=== PATIENT | female | born 1935 | race Caucasian/White ===

== ENCOUNTER 2016-10-12 14:25 | Emergency (ER) | payer OTHER ==
--- NOTE | ~2016-10-12 | CN ---
Consultation Report [facility] [address] [place]. [address] NAME: GOMEZ VARGAS : 35 STATUS : [facility]#: [id number] AGE: 81 ADM/REG DATE : 10/12/16 MR#: [id number] REPORT SERV DATE: 10/12/16 DICTATED BY: GALI BANSAL DATE: 10/12/16 REPORT STATUS : Draft TRANSCRIBED BY: MODL DATE: 10/12/16 CARDIOLOGY CONSULTATION NOTE DATE OF CONSULTATION: 10/12/2016 REASON FOR CONSULTATION: Out of hospital cardiac arrest with ongoing CPR. HISTORY OF PRESENT ILLNESS: Ms Vargas is an 81-year-old woman with a history of hereditary angioedema. The patient apparently had been complaining of shortness of breath for one to two days. The patient apparently was advised by her family to go to the emergency room, but refused yesterday. Today, the patient's symptoms had progressed and Emergency Medical Services were called. According to EMS, they arrived at the patient's home to find her with a cyanotic and mottled appearance. The patient was severely hypoxic. As the patient was being treated and prepared for transport, she apparently suffered PEA cardiac arrest. The patient was treated with CPR and had return of spontaneous circulation after several minutes of CPR, which was started at approximately 1:10 p.m. today. The patient apparently lost her pulse on several occasions in transit to [facility]. The patient was brought to the [facility] where a 12-lead EKG was performed. This showed a right bundle branch block pattern. There was concern over possible anterolateral ST-segment elevation. The Cardiology Service was therefore consulted. At the time of my arrival at the bedside, CPR was in progress. The patient was eventually resuscitated with IV bicarbonate and epinephrine. The patient's initial ABG shows a pH of 6.88, pCO2 of 74, and PO2 of 240. The patient had a stat serum lactate of greater than 20. After the patient had been temporarily stabilized, a bedside echocardiogram was performed. This was of a very limited quality, due to body habitus and poor windows as well as endotracheal intubation and positive pressure ventilation. However, the patient's left ventricle did not show any segmental wall motion abnormalities in the views that were obtained. Left ventricular systolic function did appear to be mildly to moderately reduced with an ejection fraction of approximately 40% to 45%. The patient's right ventricle, however, appeared to be dilated with diffuse hypokinesis of the right ventricle and relatively preserved function of the RV apex. This finding was suggestive of pulmonary embolism. Shortly after echocardiography was performed, the patient again became pulseless despite treatment with an IV epinephrine drip. CPR was restarted. At this time, the case was discussed with the patient's family. The patient has multiple poor prognostic factors for [id number] cardiac arrest, including a pH less than 7.2, lactic greater than 7, and prolonged CPR as well as her initial rhythm being a non VFib rhythm. It was recommended that the family that the patient not be treated with an emergency cardiac catheterization. The family explained that the patient would not want extreme measures taken to prolong her life. After discussion with the family, the patient again became pulseless. After additional CPR and epinephrine, the patient had an agonal rhythm with severe bradycardia and Consultation Report [address] [address] NAME: GOMEZ VARGAS : 35 STATUS : DEP ER PAT#: [id number] AGE: 81 ADM/REG DATE : 10/12/16 MR#: [id number] REPORT SERV DATE: 10/12/16 DICTATED BY: GALI BANSAL DATE: 10/12/16 REPORT STATUS : Draft TRANSCRIBED BY: MIRANDA DATE: 10/12/16 pulseless electrical activity. The patient was pronounced shortly after this and the family was informed. The patient was pronounced by Dr. Mendez. The time of was approximately 1430 hours on 10/12/2016. A total of approximately one hour of critical care time was spent with this patient including discussions with the ER attending and the patient's family. [facility]/MIRANDA Gali Bansal MD / [id number]
[2016-10-12 14:00] LABS: INSTRUMENT SERIAL # 8087; PCO2 (CO2 TENSION) 74 MMHG (35-45); pH 6.87 (7.37-7.43)
[2016-10-12 14:01] LABS: BE (BASE EXCESS) -19.8 MEQ/L (0 +/- 2.5); HCO3 (ACTUAL BICARBONATE) 13.1 MEQ/L (23-27); HEMOBLOGIN CONTENT 8.8 G/DL (12-16); METHEMOGLOBIN 0.5 % (0-3); O2 CONTENT 12.7 VOL% (18-24); PO2 (O2 TENSION) 240 MMHG (79-93); SAMPLE Arterial
[2016-10-12 14:07] LABS: BASOPHILS 0.6 %; BASOPHILS ABSOLUTE 0.07 10/3/uL (0.0-0.16); EOSINOPHILS 1.2 %; EOSINOPHILS ABSOLUTE 0.14 10/3/uL (0.0-0.53); ER CBC TAT 0 Hrs 05 Mins; HEMATOCRIT 28.5 % (36.0-48.0); HEMOGLOBIN 8.1 g/dL (12.0-16.0); IMMATURE GRANULOCYTES 4.1 %; IMMATURE GRANULOCYTES ABSOLUTE 0.48 10/3/uL (0.0-0.11); LYMPHOCYTES 48.8 %; LYMPHOCYTES ABSOLUTE 5.72 10/3/uL (0.67-4.30); MEAN CORPUS HGB CONC 28.4 g/dL (32.0-36.0); MEAN CORPUSCULAR HEMOGLOB 29.6 pg (26.0-34.0); MEAN PLATELET VOLUME 10.2 fL (9.2-13.0); MONOCYTES 9.6 %; MONOCYTES ABSOLUTE 1.12 10/3/uL (0.21-1.20); NEUTROPHILS 35.7 %; NEUTROPHILS ABSOLUTE 4.19 10/3/uL (2.02-8.40); PLATELET COUNT 203 10/3/uL (150-400); RBC DISTRIBUTION WIDTH 14.5 % (12.0-16.0); RED CELL COUNT 2.74 10/6/uL (4.0-5.6); WHITE BLOOD CELLS 11.7 10/3/uL (4.5-10.5)
[2016-10-12 14:08] LABS: MANUAL DIFF NO %
[2016-10-12 14:09] LABS: NUCLEATED RED BLOOD CELLS 0.7 /100WBC (0-0)
[2016-10-12 14:13] LABS: INTERNATIONAL NORMAL RATI 1.9 UNITS (-); PARTIAL THROMBO TIME 51.7 SEC (22.5-37.2); PROTIME (NOT ORD) 21.6 SEC (12.0-14.5)
[2016-10-12 14:19] LABS: BE (BASE EXCESS) -13.8 MEQ/L (0 +/- 2.5); CARBOXYHEMOGLOBIN 1.6 % (0-3); HCO3 (ACTUAL BICARBONATE) 17.1 MEQ/L (23-27); HEMOBLOGIN CONTENT 8.1 G/DL (12-16); INSTRUMENT SERIAL # 8087; METHEMOGLOBIN 0.4 % (0-3); O2 CONTENT 11.1 VOL% (18-24); PCO2 (CO2 TENSION) 73 MMHG (35-45); PO2 (O2 TENSION) 139 MMHG (79-93); SAMPLE Arterial; pH 6.99 (7.37-7.43)
[2016-10-12 14:21] LABS: BUN (BLOOD UREA NITROGEN) 15 MG/DL (6-23); CALCIUM, SERUM 12.1 MG/DL (8.5-10.4); CHLORIDE, SERUM 103 MMOL/L (96-112); CREATININE 1.98 MG/DL (0.55-1.02); GFR AFRICAN AMERICAN 27 ML/MIN (>=60); GFR NON AFRICAN AMERICAN 23 ML/MIN (>=60); POTASSIUM, SERUM 4.2 MMOL/L (3.5-5.3); SODIUM, SERUM 138 MMOL/L (135-148)
[~2016-10-12 14:25] MED LIST: CINRYZE500 UNIT IV; CYMBALTA30 PO; EPIPEN0.3 IM; ESTRACE1 MG PO; FIRAZYR IJ; KLOR-CON M2020 MEQ PO; L20 PO; LEVOTHYROXIN88 MCG PO; NEUR300 PO; NEXIUM40 PO; NORV5 PO; PLAVIX PO; SYN88 PO; TOPXL50 PO; TRAZ50 PO; VENTOLIN HFA; VENTOLIN HFA INH; ZANTAC150 MG PO; [UNRECOGNIZED DRUG - OTHER]
[2016-10-12 14:27] LABS: CHEST PAIN PROFILE TAT 0 Hrs 25 Mins; CO2 (CARBON DIOXIDE) 14 MMOL/L (24-34); GLUCOSE, SERUM 451 MG/DL (60-99); TROPONIN I 0.13 NG/ML (<0.05)
[2016-10-12 14:29] LABS: EOSINOPHILS 1 %; EOSINOPHILS ABSOLUTE (CALC) 0.12 10/3/uL (0.0-0.53); ER DIFF TAT 0 Hrs 27 Mins; LYMPHOCYTES 41 %; MACROCYTES 1+ (5-10/OIF) (0-5/OIF); MONOCYTES 10 %; MONOCYTES ABSOLUTE (CALC) 1.17 10/3/uL (0.21-1.20); NEUTROPHILS ABSOLUTE (CALC) 5.62 10/3/uL (2.02-8.40); PLATELET ESTIMATE ADQ (ADEQUATE); SEGMENTED NEUTROPHIL (0) 48 %; TOTAL NUCLEATED CELLS 100
== END 2016-10-12 15:23 | disposition expired ==
LOC: ER 14:25
PROVIDERS: Emergency Medicine
DX: I46.9 Cardiac arrest, cause unspecified (principal); I26.99 Other pulmonary embolism without acute cor pulmonale; E87.2 Acidosis; I25.2 Old myocardial infarction; R79.89 Other specified abnormal findings of blood chemistry; I10 Essential (primary) hypertension; Z88.2 Allergy status to sulfonamides; Z88.0 Allergy status to penicillin; Z88.8 Allergy status to other drugs, medicaments and biological substances; Z79.899 Other long term (current) drug therapy
CPT/HCPCS: 36600; 80048; 82330; 82803; 82805; 82947; 83605; 83735; 84132; 84295; 84484; 85014; 85025; 85610; 85730; 92950; 93005; 94002; 99291; A9270-GY